=== PATIENT | male | born 1980 ===

== ENCOUNTER 2021-03-05 10:18 | Emergency (ER) | payer MEDICAID ==
[~2021-03-05] VITALS: Ht 185.4 cm; Wt 108.9 kg
[2021-03-05 10:38] VITALS: BP 122/85
== END 2021-03-05 12:00 | disposition home or self-care (01) ==
LOC: ER 10:18
DX: N45.1 Epididymitis (principal); N43.3 Hydrocele, unspecified; F17.210 Nicotine dependence, cigarettes, uncomplicated; Z88.0 Allergy status to penicillin; Z88.8 Allergy status to other drugs, medicaments and biological substances
CPT/HCPCS: 76870

== ENCOUNTER 2021-03-18 11:51 | Emergency (ER) | payer MEDICAID ==
[~2021-03-18] VITALS: Ht 182.9 cm; Wt 113.4 kg
[2021-03-18 13:35] VITALS: BP 120/87
== END 2021-03-18 14:02 | disposition home or self-care (01) ==
LOC: ER 11:51
DX: N45.1 Epididymitis (principal); Z76.0 Encounter for issue of repeat prescription; F17.210 Nicotine dependence, cigarettes, uncomplicated; Z88.0 Allergy status to penicillin; Z88.8 Allergy status to other drugs, medicaments and biological substances

== ENCOUNTER 2022-11-19 07:33 | Emergency (ER) | payer MEDICAID ==
[~2022-11-19] VITALS: Ht 182.9 cm; Wt 135.3 kg
[2022-11-19 08:54] VITALS: BP 134/73; PULSE 80; RESP 16; TEMP 97.8; O2SAT 96
[2022-11-19] MEDS ORDERED: TETANUS-DIPTH-ACEL PERTUSSIS 0.5ML SYR Tdap IM ONE (10:00)
== END 2022-11-19 09:53 | disposition home or self-care (01) ==
LOC: ER 07:33
DX: S01.111A Laceration without foreign body of right eyelid and periocular area, initial encounter (principal); Y04.8XXA Assault by other bodily force, initial encounter; Y93.89 Activity, other specified; Y92.89 Other specified places as the place of occurrence of the external cause; Y99.8 Other external cause status
CPT/HCPCS: 12011; 90471; 90715

== ENCOUNTER 2023-10-18 16:41 | Emergency (ER) | payer MEDICAID ==
[~2023-10-18 16:41] MED LIST: BACIOIN15 TOP; CEPH250C PO; IBUP-1455 PO
== END 2023-10-18 17:17 | disposition left against medical advice (07) ==
LOC: ER 16:41
DX: M79.10 Myalgia, unspecified site (principal); Z53.21 Procedure and treatment not carried out due to patient leaving prior to being seen by health care provider

== ENCOUNTER 2023-11-20 12:12 | Emergency (ER) | payer MEDICAID ==
[~2023-11-20] VITALS: Ht 182.9 cm; Wt 135.3 kg
[2023-11-20 12:22] VITALS: BP 153/105; PULSE 100; RESP 20; O2SAT 97
== END 2023-11-20 13:41 | disposition left against medical advice (07) ==
LOC: ER 12:12
DX: M54.50 Low back pain, unspecified (principal); Z53.21 Procedure and treatment not carried out due to patient leaving prior to being seen by health care provider